=== PATIENT | female | born 1950 | race African-American/Black ===

== ENCOUNTER → 2016-06-16 | Day surgery (SDC) | payer BC ==
[~2016-06-16] MED LIST: GLUCOPHAGE500 M1 PO; SINGULAIR PO; [UNRECOGNIZED DRUG - OTHER]
--- NOTE | ~2016-06-16 | OR ---
Unit #: [id number] #: [id number] Patient: SLADE HENDERSON [id number] [address] [place], [place] [address] [id number] O MR#: [id number] NAME: SLADE HENDERSON ROOM: Date of Procedure: 06/16/2016 Admission Date: 06/16/2016 Surgeon: Juvencio Hamm M.D. : 1950 Attending Physician: Juvencio Hamm M.D. Referring Physician: Juvencio Hamm M.D. Primary Care Physician: Andriy Henderson M.D. OPERATIVE REPORT PRIMARY CARE PHYSICIAN Andriy Henderson M.D. PREOPERATIVE DIAGNOSIS Colorectal cancer screening in an average-risk patient. PROCEDURES PERFORMED Colonoscopy and polypectomy. POSTOPERATIVE DIAGNOSES 1. A single sessile polyp in the mid descending colon. The latter was about 5 mm in size. It was removed using snare polypectomy. 2. Rest of examination up to cecum and terminal ileum was normal. The quality of the prep was excellent. RECOMMENDATIONS Follow up results of polyp histology and consider repeat colonoscopy in 5 years. SEDATION USED MAC. DESCRIPTION OF PROCEDURE Following detailed explanation of the potential risks and complications of a colonoscopy, namely perforation, bleeding, and complications related to sedation, the patient was brought to GI lab and laid in the left lateral decubitus position. A digital rectal examination was performed, which was normal. Lubricated tip of the Olympus video colonoscope was inserted through the anus and advanced under direct vision. The scope was advanced and passed up to sigmoid into descending colon. A single sessile polyp was noted in the proximal descending colon. This was about 5 mm in size. It was removed using snare polypectomy, retrieved and sent for histology. The scope tip was then navigated all the way up to cecum with visualization of the ileocecal valve and the appendiceal orifice. Preparation was excellent with good visualization and photodocumentation was obtained. Last several inches of terminal ileum also visualized after intubation of the ileocecal valve and appeared normal. Successive segments of the colonic mucosa were examined upon withdrawal and appeared unremarkable. There being no additional polyps. No angiodysplasias or diverticula were noticed. The patient did not have any hemorrhoids at anal verge. The scope was then withdrawn. The patient returned to recovery area. She tolerated the procedure without any postprocedure Unit #: [id number] #: [id number] Patient: CANDELARIASLADE G complications. Dictated by... Eligio Leija/chelsey TD: 06/17/2016 01:38 JOB #: [id number] OPERATIVE REPORT X Juvencio Hamm MD PROCEDURE OPERATIVE NOTE
== END | disposition home or self-care (01) ==
LOC: COPS 07:26
DX: Z12.11 Encounter for screening for malignant neoplasm of colon (principal); K63.5 Polyp of colon; E11.9 Type 2 diabetes mellitus without complications; Z98.890 Other specified postprocedural states; Z79.899 Other long term (current) drug therapy
CPT/HCPCS: 82947; 88305; J2250

== ENCOUNTER → 2016-08-16 | Outpatient (CLI) | payer BC ==
--- NOTE | ~2016-08-16 | MY11 ---
[facility] A Service of [facility] RADIOLOGY TEXT RESULTS PATIENT: SLADE GAONA LOCATION: [facility] : 54 UNIT #: [id number] AGE: [address]: VELASQUEZ GAONA MD SEX: F ORDER DR: [id number] [address] [address] [id number] O MR#: [id number] Acc #: [id number] NAME: SLADE GAONA : 1950 SEX: F STUDY DATE/TIME: 08/16/2016 7:44 UNIT: [facility] ROOM: STUDY DESCRIPTION: MY Mammogram Screening Dig Kevin Attending Physician: Velasquez Gaona M.D. Referring Physician: Velasquez Gaona M.D. Ordering Physician: Velasquez Gaona M.D. Primary Care Physician: Velasquez Gaona M.D. MEDICAL IMAGING REPORT This report is preliminary unless electronic signature is present EXAM Bilateral digital screening mammogram with CAD 08/16/2016 INDICATIONS 66-year-old female for routine screening. No reported problems and no personal history of breast cancer. Family history positive in the patient's sister. No surgeries. TECHNIQUE CC and MLO views were obtained and reviewed with an approved CAD device. COMPARISON: 07/21/2015, 05/09/2014, 04/21/07 FINDINGS Breast parenchyma is composed of scattered fibroglandular densities and the pattern is unchanged. There is no new dominant nodule, mass or suspicious clustered microcalcifications. Benign calcifications are present. Benign intramammary nodes present and stable. IMPRESSION 1. Benign screening mammogram 1 year followup recommended. Patients over the age of 40 are entered into a reminder system with target due date for the next mammogram. A result letter will also be sent to the patient. BIRADS: 2 - benign findings Dictated by... Truman Solorzano M.D. [facility] A Service of [facility] RADIOLOGY TEXT RESULTS PATIENT: SLADE GAONA LOCATION: [facility] : 54 UNIT #: [id number] AGE: [address]: VELASQUEZ GAONA MD SEX: F ORDER DR: THIS IS AN ELECTRONICALLY VERIFIED REPORT Truman Solorzano M.D. at 08/16/2016 4:59 PM Bertram TD: 08/16/2016 11:18 JOB #: [id number] MEDICAL IMAGING REPORT Page 1 of 1 COPY
== END | disposition home or self-care (01) ==
LOC: CWCC 07:26
DX: Z12.31 Encounter for screening mammogram for malignant neoplasm of breast (principal); Z80.3 Family history of malignant neoplasm of breast
CPT/HCPCS: G0202

== ENCOUNTER → 2016-11-11 | Outpatient (CLI) | payer BC | END | disposition home or self-care (01) | LOC: CECH 13:26 | DX: R01.1 Cardiac murmur, unspecified (principal) | CPT/HCPCS: 93306 ==